=== PATIENT | male | born 1995 | race Two or more races ===

== ENCOUNTER 2023-11-17 12:10 | Emergency (ER) | payer MEDICAID, OTHER ==
[~2023-11-17] VITALS: Ht 157.5 cm; Wt 66.1 kg
[2023-11-17] MEDS: TETANUS-DIPTH-ACEL PERTUSSIS 0.5ML SYR Tdap IM ONE (13:39)
[2023-11-17] MEDS: LIDOCAINE 1% (LOCAL ANESTH.) PF 5ml SDV ID ONE (13:40)
[2023-11-17 13:48] VITALS: BP 97/60; PULSE 58; RESP 17; O2SAT 99
[2023-11-17 13:58] VITALS: TEMP 98
[2023-11-17] MEDS: ACETAMINOPHEN 500 MG TAB PO ONE (13:58)
[2023-11-17] MEDS: LIDOCAINE 1% HCL (LOCAL ANESTH.) INJ 20ML MDV ONE (13:58)
== END 2023-11-17 15:45 | disposition home or self-care (01) ==
LOC: ER 12:10
DX: S01.01XA Laceration without foreign body of scalp, initial encounter (principal); R00.1 Bradycardia, unspecified; Z88.8 Allergy status to other drugs, medicaments and biological substances; W20.8XXA Other cause of strike by thrown, projected or falling object, initial encounter; Y93.89 Activity, other specified; Y92.89 Other specified places as the place of occurrence of the external cause; Y99.8 Other external cause status
CPT/HCPCS: 12002; 70450; 72125; 90471; 90715; 93005; 99285; J2001